=== PATIENT | male | born 1930 | race Caucasian/White ===

== ENCOUNTER 2019-09-08 23:19 | Emergency (ER) | payer MEDICAID, OTHER ==
[~2019-09-08] VITALS: Ht 160 cm; Wt 68.5 kg
[~2019-09-08 23:19] MED LIST: KEF500 PO
[2019-09-08 23:25] VITALS: BP 153/79
--- NOTE | 2019-09-08 23:33 | NUR ---
PT AMBULATED TO BED #4
--- NOTE | 2019-09-08 23:38 | NUR ---
89 Y/O BIB SON C/O RT EAR BUZZING AND DIZZNESS X2 HOURS. PT DENIES N/V/D AND FEVER/CHILLS. RECENTLY CAME BACK FROM [place] TODAY. PATIENT IS A/OX4 AND FOLLOWS COMMANDS; PERRLA +3 IN BOTH EYES. BREATHING IS UNLABORED AND SYMMETRICAL. NO TENDERNESS UPON PALPATION IN RIGHT EAR; SLIGHT CERUMEN NOTED. ERMD MADE AWARE OF STATUS. SIDE RAILSX1. FAMILY MEMBERS AT BEDSIDE. NKA HX- PROSTATE RX: PROSTATE MEDICATIONS
--- NOTE | 2019-09-08 23:45 | NUR ---
Dr. Bowman examining patient.
--- NOTE | 2019-09-08 23:45 | NUR ---
ERMD EVALUATING PATIENT AT THIS TIME.
[2019-09-09 00:02] VITALS: BP 153/79
== END 2019-09-09 00:02 | disposition home or self-care (01) ==
LOC: MED 23:19
DX: H93.11 Tinnitus, right ear (principal); R42 Dizziness and giddiness; I10 Essential (primary) hypertension; Z79.899 Other long term (current) drug therapy; Z85.46 Personal history of malignant neoplasm of prostate
CPT/HCPCS: 99282